=== PATIENT | male | born 1955 | race Caucasian/White ===

== ENCOUNTER → 2018-11-28 | Outpatient (CLI) | payer OTHER | END | disposition home or self-care (01) | LOC: LAB SHORT 15:57 → PLD 15:57 | DX: B35.1 Tinea unguium (principal); L60.2 Onychogryphosis | CPT/HCPCS: 88304; 88312 ==

== ENCOUNTER 2019-02-16 18:15 | Emergency (ER) | payer OTHER ==
[~2019-02-16] VITALS: Ht 182.9 cm; Wt 154.2 kg
[~2019-02-16 18:15] MED LIST: TYLECOD3 PO
== END 2019-02-16 19:34 | disposition home or self-care (01) ==
LOC: ER 18:15
DX: S40.822A Blister (nonthermal) of left upper arm, initial encounter (principal); M25.512 Pain in left shoulder; E11.9 Type 2 diabetes mellitus without complications; I10 Essential (primary) hypertension; Z88.0 Allergy status to penicillin; Z91.048 Other nonmedicinal substance allergy status; W26.8XXA Contact with other sharp object(s), not elsewhere classified, initial encounter
CPT/HCPCS: 99282; A9270-GY

== ENCOUNTER 2023-12-31 16:05 | Emergency (ER) | payer OTHER ==
[~2023-12-31] VITALS: Ht 182.9 cm; Wt 141.1 kg
[~2023-12-31 16:05] MED LIST changes: +AMLO10 PO; +BENAZEPRIL HCL40 M1 PO; +GLIM4 PO; +GLUCOPHAGE1000 M1 PO; +Lasix20 MG PO; +METO100ER PO
[2023-12-31] MEDS ORDERED: FentaNYL Citrate 50 MCG/ML 2 ML Injection IV ONE (18:25)
[2023-12-31 20:00] VITALS: BP 163/81
[2023-12-31] MEDS ORDERED: IBUP800 PO (20:17)
[2023-12-31] MEDS ORDERED: RX Prepack 6 Tabs Oxycodone 5mg UD ONE (20:20)
== END 2023-12-31 20:21 | disposition home or self-care (01) ==
LOC: ER 16:05
DX: S76.011A Strain of muscle, fascia and tendon of right hip, initial encounter (principal); X50.1XXA Overexertion from prolonged static or awkward postures, initial encounter; Z88.8 Allergy status to other drugs, medicaments and biological substances; Z88.0 Allergy status to penicillin; Z91.030 Bee allergy status; Z79.899 Other long term (current) drug therapy; E11.9 Type 2 diabetes mellitus without complications; I10 Essential (primary) hypertension
CPT/HCPCS: 73502; 96374; 99284-25; A9270; J3010

== ENCOUNTER → 2024-11-17 | Outpatient (CLI) | payer OTHER ==
[~2024-11-17] MED LIST changes: +IBUP800 PO
[2024-11-17 13:14] LABS: Creatinine, Urine Random 88.1 mg/dL (27.00-270.00); Microalb/Creat Ratio UR, Rand 11.918 mg/g (0.000-30.000); Microalbumin, Random Urine 10.5 mg/L (0.000-20.000)
== END ==
LOC: LAB 10:50 → LAB SHORT 10:50
PROVIDERS: Physician Assistant
DX: E11.65 Type 2 diabetes mellitus with hyperglycemia (principal)
CPT/HCPCS: 82043; 82570